=== PATIENT | female | born 1990 | race Caucasian/White ===

== ENCOUNTER 2016-09-29 12:42 | Emergency (ER) | payer OTHER ==
--- NOTE | 2016-09-29 13:10 | ER Document Report ---
ED GI/ - General Chief Complaint: Abdominal Pain Stated Complaint: ABDOMINAL PAIN, BACK PAIN Time Seen by Provider: 09/29/16 13:05 Notes: The patient is a 26-year-old female, no past medical history, presents with bilateral upper abdominal pain when she takes deep breaths. She took Naprosyn and Flexeril earlier today with mild relief of her symptoms. She denies nausea , vomiting, diarrhea, constipation, OCPs, chest pain, hemoptysis, leg swelling or recent surgery. TRAVEL OUTSIDE OF THE [place] IN LAST 30 DAYS: No - Related Data Allergies/Adverse Reactions: No Known Allergies Allergy (Verified 09/29/16 13:04) Home Medications: Current Home Medications No Home Medications 09/29/16 [History] Past Medical History - General Information source: Patient - Social History Smoking Status: Current Every Day Smoker Frequency of alcohol use: None Drug Abuse: None Family History: Reviewed & Not Pertinent Renal/ Medical History: Denies: Hx Peritoneal Dialysis Surgical Hx: Negative Review of Systems - Review of Systems Notes: REVIEW OF SYSTEMS: CONSTITUTIONAL: -fevers, -chills EENT: -eye pain, -difficulty swallowing, -nasal congestion CARDIOVASCULAR:-chest pain, -syncope. RESPIRATORY: -cough, -SOB GASTROINTESTINAL: +B/L upper abdominal pain, -nausea, -vomiting, -diarrhea GENITOURINARY: -dysuria, -hematuria MUSCULOSKELETAL: -back pain, -neck pain SKIN: -rash or skin lesions. HEMATOLOGIC: -easy bruising or bleeding. LYMPHATIC: -swollen, enlarged glands. NEUROLOGICAL: -altered mental status or loss of consciousness, -headache, - neurologic symptoms PSYCHIATRIC: -anxiety, -depression. ALL OTHER SYSTEMS REVIEWED AND NEGATIVE. Physical Exam - Vital signs Vitals: Temp Pulse Resp BP Pulse Ox 98.6 F 98 16 115/61 97 09/29/16 12:52 09/29/16 12:52 09/29/16 12:52 09/29/16 12:52 09/29/16 12:52 - Notes Notes: PHYSICAL EXAMINATION: GENERAL: Well-appearing, well-nourished and in no acute distress. HEAD: Atraumatic, normocephalic. EYES: Pupils equal round and reactive to light, extraocular movements intact, sclera anicteric, conjunctiva are normal. ENT: nares patent, oropharynx clear without exudates. Moist mucous membranes. NECK: Normal range of motion, supple without lymphadenopathy LUNGS: Breath sounds clear to auscultation bilaterally and equal. No wheezes rales or rhonchi. HEART: Regular rate and rhythm without murmurs ABDOMEN: Soft, B/L upper abdominal tenderness, normoactive bowel sounds. No guarding, no rebound. No masses appreciated. EXTREMITIES: Normal range of motion, no pitting or edema. No cyanosis. NEUROLOGICAL: Cranial nerves grossly intact. Normal speech, normal gait. Normal sensory and motor exams. PSYCH: Normal mood, normal affect. SKIN: Warm, Dry, normal turgor, no rashes or lesions noted. Course - Re-evaluation Re-evalutation: Patient appears well. Her labs chest x-ray are unremarkable. Suspect a component of pleurisy leading to her symptoms. She is PERC negative. Will discharge patient home with follow-up at her primary care physician and strict return precautions. - Vital Signs Vital signs: Temp Pulse Resp BP Pulse Ox 98.6 F 98 18 115/61 97 09/29/16 12:52 09/29/16 12:52 09/29/16 13:00 09/29/16 12:52 09/29/16 12:52 - Laboratory Result Diagrams: 09/29/16 13:15 09/29/16 13:15 Laboratory results interpreted by me: 09/29/16 09/29/16 13:15 13:15 RDW 14.1 H Seg Neutrophils % 88.2 H Lymphocytes % 7.3 L Urine Protein 30 H - Diagnostic Test Radiology reviewed: Image reviewed, Reports reviewed Radiology results interpreted by me: CXR: NAD Discharge - Discharge Clinical Impression: Upper abdominal pain Condition: Stable Disposition: HOME, SELF-CARE Additional Instructions: ABDOMINAL PAIN: There are many causes of abdominal pain. Pain can mean a serious problem requiring surgery (such as appendicitis). It can also be an innocent problem that goes away on its own (such as a viral infection). Often, time must pass to determine the cause of pain. The physician does not feel that hospitalization is necessary, at present. Things may change within the next 24 hours. Call the doctor or come back for re- examination if any problems occur, such as: (1) Pain that becomes more severe, steady, or becomes concentrated in one specific area. Also, pain that is more severe with movement or coughing. (2) Vomiting that persists or becomes more frequent. (3) Blood in the vomitus, urine, or bowel movements. Blood in the stool may have a tarry or black appearance. (4) Shaking chills or fever greater than 100 degrees F. (5) The abdomen becomes more distended or swollen. (6) Bowel movements cease. (7) Failure to improve as expected. NORMAL EXAM AND WORKUP: At this time, your examination and workup show no significant abnormality. No significant abnormal physical findings are noted. All laboratory, EKG, and imaging (x-ray, CT scans, ultrasound) studies that were ordered show no significant abnormality. Although your examination and all studies that were ordered showed no significant abnormal finding, there are no examinations and no studies that are 100% accurate. There is always the possibility that some abnormality could exist and not be detected with physical examination or within the limits and capabilities of laboratory and other studies. You should return or follow up as you were instructed on your visit today for further evaluation if your symptoms do not resolve. FOLLOW-UP CARE: If you have been referred to a physician for follow-up care, call the physician s office for an appointment as you were instructed or within the next two days. If you experience worsening or a significant change in your symptoms, notify the physician immediately or return to the Emergency Department at any time for re-evaluation. Pleurisy Your chest pain has been diagnosed as pleuritis (pleurisy). This is an inflammation of the surface of the lung tissue. It can be caused by a virus or , occasionally, old scar tissue. It is painful but, for the most part, not a serious problem. This pain is usually made worse by deep breathing, coughing, or sudden movements of the upper body or arms. The treatment is relief of symptoms. It includes rest, antiinflammatory medication, and pain medicine. Resolution of the pain is usually rapid once antiinflammatory medication is started. Warning signs of a more serious problem include: a fever, shortness of breath, pain that radiates to your jaw, shoulders or arms, or coughing up bloody sputum. If any of these symptoms occur, call the physician at once.
[2016-09-29 13:42] LABS: ABSOLUTE LYMPHOCYTES (AUTO) 0.6 10^3/uL (0.5-4.7); ABSOLUTE MONOCYTES (AUTO) 0.3 10^3/uL (0.1-1.4); ABSOLUTE NEUT (AUTO) 6.9 10^3/uL (1.7-8.2); BASOPHILS % (AUTO) 0.5 % (0-2); EOSINOPHILS % (AUTO) 0.2 % (0-6); HEMATOCRIT 42.2 % (36.0-47.0); HEMOGLOBIN 14.3 g/dL (12.0-15.5); HGB HCT DIFFERENCE 0.7; LYMPHOCYTES % (AUTO) 7.3 % (13-45); MEAN CORPUSCULAR HEMOGLOBIN 28.7 pg (27.0-33.4); MEAN CORPUSCULAR HGB CONC 33.9 g/dL (32.0-36.0); MEAN CORPUSCULAR VOLUME 85 fl (80-97); MONOCYTES % (AUTO) 3.8 % (3-13); RED BLOOD COUNT 4.99 10^6/uL (3.72-5.28); RED CELL DISTRIBUTION WIDTH 14.1 % (11.5-14.0); SEGMENTED NEUTROPHILS % (AUTO) 88.2 % (42-78); WHITE BLOOD COUNT 7.9 10^3/uL (4.0-10.5)
--- NOTE | 2016-09-29 13:43 | RADIOLOGY REPORT (SQ) ---
EXAM DESCRIPTION: CHEST PA/LAT COMPLETED DATE/TIME: 09/29/2016 1:34 pm REASON FOR STUDY: SOB COMPARISON: None. EXAM PARAMETERS: NUMBER OF VIEWS: two views TECHNIQUE: Digital Frontal and Lateral radiographic views of the chest acquired. RADIATION DOSE: NA LIMITATIONS: none FINDINGS: LUNGS AND PLEURA: No opacities, masses or pneumothorax. No pleural effusion. MEDIASTINUM AND HILAR STRUCTURES: No masses or contour abnormalities. HEART AND VASCULAR STRUCTURES: Heart normal size. No evidence for failure. BONES: No acute findings. HARDWARE: None in the chest. OTHER: No other significant finding. IMPRESSION: NO SIGNIFICANT RADIOGRAPHIC FINDING IN THE CHEST. TECHNICAL DOCUMENTATION: JOB ID: [id number] [employer]- All Rights Reserved
[2016-09-29 13:50] LABS: APPEARANCE,URINE SLIGHTLY-CLOUDY; BILIRUBIN,URINE NEGATIVE (NEGATIVE); GLUCOSE, URINE NEGATIVE (NEGATIVE); KETONES,URINE NEGATIVE (NEGATIVE); LEUKOCYTE ESTERASE,URINE NEGATIVE (NEGATIVE); NITRITE,URINE NEGATIVE (NEGATIVE); PROTEIN,URINE 30 mg/dL (NEGATIVE); URINE SPECIFIC GRAVITY 1.032; UROBILINOGEN,URINE NEGATIVE mg/dL (<2.0)
[2016-09-29 14:15] LABS: ALANINE AMINOTRANSFERASE 23 U/L (9-52); ALBUMIN 4.2 g/dL (3.5-5.0); ALKALINE PHOSPHATASE 90 U/L (38-126); ANION GAP 11 (5-19); ASPARTATE AMINO TRANSFERASE 18 U/L (14-36); BILIRUBIN,DIRECT 0.3 mg/dL (0.0-0.4); BILIRUBIN,TOTAL 0.9 mg/dL (0.2-1.3); BLOOD UREA NITROGEN 10 mg/dL (7-20); CALCIUM 9.8 mg/dL (8.4-10.2); CARBON DIOXIDE 25 mmol/L (22-30); CHLORIDE 105 mmol/L (98-107); CREATININE RESULT 0.71 mg/dL (0.52-1.25); GLUCOSE 129 mg/dL (75-110); SODIUM 141.3 mmol/L (137-145); TOTAL PROTEIN 7.4 g/dL (6.3-8.2)
[2016-09-29 14:36] VITALS: BP 115/53
== END 2016-09-29 14:47 | disposition home or self-care (01) ==
LOC: ER 12:42
DX: R10.10 Upper abdominal pain, unspecified (principal); M54.9 Dorsalgia, unspecified; F17.200 Nicotine dependence, unspecified, uncomplicated
CPT/HCPCS: 36415; 71020; 80053; 81001; 81025; 85025; 99284

== ENCOUNTER 2016-10-30 21:02 | Emergency (ER) | payer OTHER ==
[2016-10-30 22:16] LABS: APPEARANCE,URINE SLIGHTLY-CLOUDY; BILIRUBIN,URINE NEGATIVE (NEGATIVE); GLUCOSE, URINE NEGATIVE (NEGATIVE); KETONES,URINE NEGATIVE (NEGATIVE); LEUKOCYTE ESTERASE,URINE TRACE (NEGATIVE); NITRITE,URINE NEGATIVE (NEGATIVE); PROTEIN,URINE NEGATIVE (NEGATIVE); URINE SPECIFIC GRAVITY 1.024; UROBILINOGEN,URINE NEGATIVE mg/dL (<2.0)
--- NOTE | 2016-10-30 22:39 | ER Document Report ---
ED General - General Chief Complaint: OB Problem (<20wks) Stated Complaint: VAGINAL BLEEDING AND CRAMPING Time Seen by Provider: 10/30/16 22:18 Notes: Patient is a 26-year-old female presents with complaint of some vaginal spotting for the last 2 weeks. She says it has increased in the last day. She does have some mild pelvic cramping. She is approximately 6 weeks . This is her second . She says her first was uneventful. She is on vitamins. She has not yet had an ultrasound this . She has no other complaints at this time. TRAVEL OUTSIDE OF THE [place] IN LAST 30 DAYS: No - Related Data Allergies/Adverse Reactions: No Known Allergies Allergy (Verified 10/30/16 21:11) Past Medical History - Social History Smoking Status: Never Smoker Frequency of alcohol use: None Drug Abuse: None Family History: Reviewed & Not Pertinent Patient has suicidal ideation: No Patient has homicidal ideation: No Renal/ Medical History: Denies: Hx Peritoneal Dialysis Review of Systems - Review of Systems Notes: My Normal Review Basic REVIEW OF SYSTEMS: CONSTITUTIONAL : Denies fever, chills, or sweats. Denies recent illness. EENT: Denies eye, ear, throat, or mouth pain or symptoms. Denies nasal or sinus congestion. GASTROINTESTINAL: Denies abdominal pain. Denies nausea, vomiting, or diarrhea. GENITOURINARY: Denies difficulty urinating, painful urination, burning, frequency, or blood in urine. FEMALE GENITOURINARY: Vaginal spotting. Currently . Some pelvic cramping. MUSCULOSKELETAL: Denies neck or back pain or joint pain or swelling. SKIN: Denies rash or skin lesions. NEUROLOGICAL: Denies altered mental status or loss of consciousness. Denies headache. Denies weakness or paralysis or loss of use of either side. Denies problems with gait or speech. Denies sensory or motor loss. ALL OTHER SYSTEMS REVIEWED AND NEGATIVE. Physical Exam - Vital signs Vitals: Temp Pulse Resp BP Pulse Ox 98.6 F 83 18 131/73 H 98 10/30/16 21:12 10/30/16 21:12 10/30/16 21:12 10/30/16 21:12 10/30/16 21:12 - Notes Notes: General Appearance: Well nourished, alert, cooperative, no acute distress, no obvious discomfort. Vitals: reviewed, See vital signs table. Head: no swelling or tenderness to the head Eyes: PERRL, EOMI, Conjuctiva clear Mouth: No decreasd moisture Lungs: No wheezing, No rales, No rhonci, No accessory muscle use, good air exchange bilaterally. Heart: Normal rate, Regular rythm, No murmur, no rub Abdomen: Normal BS, soft, No rigidity, mild to moderate left lower quadrant abdominal tenderness to palpation, No guarding, no rebound, Extremities: strength 5/5 in all extremities, good pulses in all extremities, no swelling or tenderness in the extremities, no edema. Skin: warm, dry, appropriate color, no rash Neuro: speech clear, oriented x 3, normal affect, responds appropriately to questions. Course - Re-evaluation Re-evalutation: 10/31/16 00:28 Patient is a seizure level is only 87. We cannot see an IUP on ultrasound. She says she 6 weeks and therefore her hCG level should be higher than this. I informed her that I think most likely she is having a miscarriage however we cannot completely rule out ectopic based on the fact that we do not have any trending hCG levels and not had an IUP P on ultrasound yet. On exam she has just minimal pain. Her vital signs are normal. She looks very well. I feel that she is safe to be discharged home for return in 2 days for reevaluation and repeat hCG level. I did inform her that if she has worsening pain, heavy bleeding, or if she feels unwell that she must return to the ER immediately. Patient agrees with plan will be discharged home. Dictation of this chart was performed using voice recognition software; therefore, there may be some unintended grammatical errors. - Vital Signs Vital signs: Temp Pulse Resp BP Pulse Ox 98.6 F 83 18 131/73 H 98 10/30/16 21:12 10/30/16 21:12 10/30/16 21:12 10/30/16 21:12 10/30/16 21:12 - Laboratory Laboratory results interpreted by me: 10/30/16 10/30/16 21:43 23:10 Beta HCG, Quant 82.08 H Urine Blood LARGE H Ur Leukocyte Esterase TRACE H Urine Ascorbic Acid 40 H Discharge - Discharge Clinical Impression: Vaginal bleeding in Condition: Stable Disposition: HOME, SELF-CARE Additional Instructions: Please return to the ER immediately if you develop worsening pain, heavy bleeding, fevers, or feel unwell. Please return to the ER in 2 days so that we can recheck your hormone level. This is extremely important as this will help us determine whether or not you are having a miscarriage, if you have a potential ectopic , or if he does have a very early that we cannot yet see an ultrasound. This follow-up with us is extremely important. Forms: Return to Work
--- NOTE | 2016-10-31 00:01 | RADIOLOGY REPORT (SQ) ---
EXAM DESCRIPTION: U/S OB TRANSVAG W/DOPPLER COMPLETED DATE/TIME: 10/30/2016 11:42 pm REASON FOR STUDY: bleeding and pain in COMPARISON: None. TECHNIQUE: Dynamic and static grayscale images acquired of the pelvis via transvaginal approach and recorded on PACS. Additional selected color Doppler and spectral images recorded. LIMITATIONS: None. FINDINGS: UTERUS: Contour normal. No mass. ENDOMETRIAL STRIPE: No focal or generalized thickening. No masses. CERVIX: No nabothian cysts. RIGHT OVARY: No abnormal masses. RIGHT OVARY DOPPLER: Normal arterial vascular flow without evidence for torsion. LEFT OVARY: No abnormal masses. LEFT OVARY DOPPLER: Normal arterial vascular flow without evidence for torsion. FREE FLUID: None noted. OTHER: No other significant finding. MEASUREMENTS: UTERUS: 7.6 x 5.3 x 3.9 cm ENDOMETRIAL STRIPE: 7 mm RIGHT OVARY: 2.9 x 2.5 x 2.1 cm LEFT OVARY: 2.6 x 1.6 x 1.9 cm IMPRESSION: No IUP identified. TECHNICAL DOCUMENTATION: JOB ID: [id number]- All Rights Reserved
[2016-10-31 00:45] VITALS: BP 118/65
== END 2016-10-31 00:45 | disposition home or self-care (01) ==
LOC: ER 21:02
DX: O26.859 Spotting complicating pregnancy, unspecified trimester (principal); O26.899 Other specified pregnancy related conditions, unspecified trimester; R10.2 Pelvic and perineal pain; Z3A.00 Weeks of gestation of pregnancy not specified
CPT/HCPCS: 36415; 76817; 81001; 84702; 86900; 86901; 93976; 99284

== ENCOUNTER 2016-11-01 06:42 | Emergency (ER) | payer OTHER ==
--- NOTE | 2016-11-01 07:41 | ER Document Report ---
ED General - General Chief Complaint: Vag Bleeding, +preg <12wks Stated Complaint: FOLLOW UP Time Seen by Provider: 11/01/16 07:03 TRAVEL OUTSIDE OF THE [place] IN LAST 30 DAYS: No - HPI Patient complains to provider of: Vaginal bleeding Notes: Patient coming in for evaluation of vaginal bleeding. Patient was seen approximately 48 hours ago with ultrasound and laboratory studies showing positive test however low beta hCG was recommended to follow-up for repeat values today. Patient otherwise states intermittent bleeding continues no abdominal pain no fevers chills nausea vomiting patient is an - Related Data Allergies/Adverse Reactions: No Known Allergies Allergy (Verified 10/30/16 21:11) Past Medical History - Social History Smoking Status: Unknown if Ever Smoked Family History: Reviewed & Not Pertinent Renal/ Medical History: Denies: Hx Peritoneal Dialysis Review of Systems - Review of Systems Constitutional: Other EENT: No symptoms reported Cardiovascular: No symptoms reported Respiratory: No symptoms reported Gastrointestinal: No symptoms reported Genitourinary: No symptoms reported Female Genitourinary: No symptoms reported Musculoskeletal: No symptoms reported Skin: No symptoms reported Hematologic/Lymphatic: No symptoms reported Neurological/Psychological: No symptoms reported Physical Exam - Vital signs Vitals: Resp 16 11/01/16 07:07 Interpretation: Normal - General General appearance: Appears well, Alert - HEENT Head: Normocephalic, Atraumatic Eyes: Normal Pupils: PERRL - Respiratory Respiratory status: No respiratory distress Chest status: Nontender Breath sounds: Normal Chest palpation: Normal - Cardiovascular Rhythm: Regular Heart sounds: Normal auscultation Murmur: No - Abdominal Inspection: Normal Distension: No distension Bowel sounds: Normal Tenderness: Nontender Organomegaly: No organomegaly - Back Back: Normal, Nontender - Extremities General upper extremity: Normal inspection, Nontender, Normal color, Normal ROM , Normal temperature General lower extremity: Normal inspection, Nontender, Normal color, Normal ROM , Normal temperature, Normal weight bearing. No: Ml's sign - Neurological Neuro grossly intact: Yes Cognition: Normal Orientation: AAOx4 Cheryle Coma Scale Eye Opening: Spontaneous [place] Coma Scale Verbal: Oriented [place] Coma Scale Motor: Obeys Commands Cheryle Coma Scale Total: 15 Speech: Normal Motor strength normal: LUE, RUE, LLE, RLE Sensory: Normal - Psychological Associated symptoms: Normal affect, Normal mood - Skin Skin Temperature: Warm Skin Moisture: Dry Skin Color: Normal Course - Re-evaluation Re-evalutation: 11/01/16 14:00 DiscussedCase with [employer] [employer] on-call recommend follow-up on Thursday in their office. Patient will be discharged home - Vital Signs Vital signs: Temp Pulse Resp BP Pulse Ox 98.5 F 60 18 111/60 98 11/01/16 09:11 11/01/16 09:11 11/01/16 09:11 11/01/16 09:11 11/01/16 09:11 - Laboratory Laboratory results interpreted by me: 11/01/16 07:43 Beta HCG, Quant 106.41 H Discharge - Discharge Clinical Impression: Vaginal bleeding in Condition: Good Disposition: HOME, SELF-CARE Instructions: Bleeding During Early ([facility]), Ectopic Precaution ([facility]) Additional Instructions: Your laboratory studies still show that you are the beta-hCG did not increase as much as be expected however it did increase. I did discuss the results with the [employer] OFFICER on-call Dr. Murillo at this time continue to treat herself as no smoking or drinking alcohol observe pelvic rest and no intercourse no tampons no toys inside the vagina.He may take Tylenol for pain control please make sure you are drinking plenty of water please continue your vitamins. Return to the ER for any worsening of her symptoms. Please follow-up on Thursday for outpatient laboratory testing and then follow-up with the [facility] care clinic for further evaluation. Forms: Follow-Up Laboratory Testing, Special Work Note Referrals: VANI TENA MD [ACTIVE STAFF] - Follow up as needed (Please call Thursday morning to schedule an afternoon appointment please have your labs drawn before you go to the [facility] [employer] I would suggest having her labs performed at around 9 [address] let the staff know you were seen in the ER and Dr. Murillo requested an appointment in the afternoon with 1 of the [employer] OFFICER's)
--- NOTE | 2016-11-01 08:55 | ER Document Report ---
ED General - General Chief Complaint: Vag Bleeding, +preg <12wks Stated Complaint: FOLLOW UP Time Seen by Provider: 11/01/16 07:03 TRAVEL OUTSIDE OF THE [place] IN LAST 30 DAYS: No - Related Data Allergies/Adverse Reactions: No Known Allergies Allergy (Verified 10/30/16 21:11) Past Medical History - Social History Smoking Status: Unknown if Ever Smoked Family History: Reviewed & Not Pertinent Renal/ Medical History: Denies: Hx Peritoneal Dialysis Physical Exam - Vital signs Vitals: Resp 16 11/01/16 07:07 Course - Vital Signs Vital signs: Temp Pulse Resp BP Pulse Ox 16 11/01/16 07:07 - Laboratory Laboratory results interpreted by me: 11/01/16 07:43 Beta HCG, Quant 106.41 H Discharge - Discharge Clinical Impression: Vaginal bleeding in Condition: Good Disposition: HOME, SELF-CARE Instructions: Bleeding During Early ([facility]), Ectopic Precaution ([facility]) Additional Instructions: Your laboratory studies still show that you are the beta-hCG did not increase as much as be expected however it did increase. I did discuss the results with the [employer] on-call Dr. Murillo at this time continue to treat herself as no smoking or drinking alcohol observe pelvic rest and no intercourse no tampons no toys inside the vagina.He may take Tylenol for pain control please make sure you are drinking plenty of water please continue your vitamins. Return to the ER for any worsening of her symptoms. Please follow-up on Thursday for outpatient laboratory testing and then follow-up with the women's health care clinic for further evaluation. Forms: Follow-Up Laboratory Testing, Special Work Note Referrals: VANI TENA MD [ACTIVE STAFF] - Follow up as needed (Please call Thursday morning to schedule an afternoon appointment please have your labs drawn before you go to the [employer] [employer] [facility] I would suggest having her labs performed at around [address] let the staff know you were seen in the ER and Dr. Murillo requested an appointment in the afternoon with 1 of the [employer]'s)
[2016-11-01 09:12] VITALS: BP 111/60
== END 2016-11-01 09:12 | disposition home or self-care (01) ==
LOC: ER 06:42
DX: O46.91 Antepartum hemorrhage, unspecified, first trimester (principal); Z3A.01 Less than 8 weeks gestation of pregnancy
CPT/HCPCS: 36415; 84702; 99284

== ENCOUNTER → 2016-11-03 | Outpatient (CLI) | payer OTHER ==
[2016-11-03 11:05] LABS: HEMATOCRIT 38.9 % (36.0-47.0); HEMOGLOBIN 13.3 g/dL (12.0-15.5); MEAN CORPUSCULAR HEMOGLOBIN 28.6 pg (27.0-33.4); MEAN CORPUSCULAR HGB CONC 34.3 g/dL (32.0-36.0); MEAN CORPUSCULAR VOLUME 83 fl (80-97); RED BLOOD COUNT 4.66 10^6/uL (3.72-5.28); WHITE BLOOD COUNT 9.6 10^3/uL (4.0-10.5)
[2016-11-03 11:41] LABS: ALANINE AMINOTRANSFERASE 24 U/L (9-52); ALBUMIN 4.1 g/dL (3.5-5.0); ALKALINE PHOSPHATASE 79 U/L (38-126); ANION GAP 10 (5-19); ASPARTATE AMINO TRANSFERASE 17 U/L (14-36); BILIRUBIN,DIRECT 0.3 mg/dL (0.0-0.4); BLOOD UREA NITROGEN 9 mg/dL (7-20); CALCIUM 9.4 mg/dL (8.4-10.2); CARBON DIOXIDE 22 mmol/L (22-30); CHLORIDE 107 mmol/L (98-107); CREATININE RESULT 0.65 mg/dL (0.52-1.25); GLUCOSE 90 mg/dL (75-110); POTASSIUM 4.2 mmol/L (3.6-5.0); TOTAL PROTEIN 7.1 g/dL (6.3-8.2)
== END ==
LOC: LAB 09:57
PROVIDERS: ATTEND Emergency Medicine
DX: O46.90 Antepartum hemorrhage, unspecified, unspecified trimester (principal)
CPT/HCPCS: 36415; 80053; 84144; 84702; 85027; 86850; 86900; 86901

== ENCOUNTER 2017-06-21 21:21 | Emergency (ER) | payer OTHER ==
[2017-06-21] MEDS ORDERED: AMOXICILLIN TRIHYDRATE 500 MG CAPSULE PO ONE (23:10)
[2017-06-21] MEDS ORDERED: KETOROLAC TROMETHAMINE 60 MG/2 ML SDV IM ONE (23:10)
[2017-06-21] MEDS ORDERED: LIDOCAINE 2% JELLY 5 ML TUBE TOP ONE (23:10)
[2017-06-21] MEDS ORDERED: ACETAMINOPHEN 325 MG TABLET PO ONE (23:11)
--- NOTE | 2017-06-21 23:13 | ER Document Report ---
ED General - General Chief Complaint: Facial pain, ear, jaw, sabianist L side Stated Complaint: FACIAL PAIN Time Seen by Provider: 06/21/17 22:29 Notes: Patient is a 26-year-old female without chronic medical problems who presents with 12 hours of left-sided ear pain as well as left facial pain. She describes as a throbbing, aching pain. Touching the area worsens the pain. She took naproxen with some improvement of the pain. She states that she has had similar pain in the past with dental infections but does not believe that she currently has a dental infection. No associated fever or constitutional symptoms. No difficulty breathing or swallowing. She has not seen her primary doctor regarding today's concerns. TRAVEL OUTSIDE OF THE [place] IN LAST 30 DAYS: No - Related Data Allergies/Adverse Reactions: No Known Allergies Allergy (Verified 06/21/17 22:41) Past Medical History - General Information source: Patient - Social History Smoking Status: Current Every Day Smoker Frequency of alcohol use: None Drug Abuse: None Lives with: Spouse/Significant other Family History: Reviewed & Not Pertinent Patient has suicidal ideation: No Patient has homicidal ideation: No Renal/ Medical History: Denies: Hx Peritoneal Dialysis Review of Systems - Review of Systems Notes: Constitutional: Negative for fever. HENT: Positive for left ear pain and left facial pain Eyes: Negative for visual changes. Cardiovascular: Negative for chest pain. Respiratory: Negative for shortness of breath. Gastrointestinal: Negative for abdominal pain, vomiting or diarrhea. Genitourinary: Negative for dysuria. Musculoskeletal: Negative for back pain. Skin: Negative for rash. Neurological: Negative for headaches, weakness or numbness. 10 point ROS negative except as marked above and in HPI. Physical Exam - Vital signs Vitals: Temp Pulse Resp BP Pulse Ox 98.7 F 78 20 132/79 H 99 06/21/17 21:57 06/21/17 21:57 06/21/17 21:57 06/21/17 21:57 06/21/17 21:57 Interpretation: Normal Notes: PHYSICAL EXAMINATION: GENERAL: Well-appearing, well-nourished and in no acute distress. HEAD: Atraumatic, normocephalic. EYES: Pupils equal round and reactive to light, extraocular movements intact, sclera anicteric, conjunctiva are normal. ENT: nares patent, oropharynx clear without exudates. No obvious dental caries or dental infections. Right TM clear. Left otitis media is present with a bulging tympanic membrane and purulent effusion. No pain over the mastoid bilaterally. NECK: Normal range of motion, supple without lymphadenopathy LUNGS: Breath sounds clear to auscultation bilaterally and equal. No wheezes rales or rhonchi. HEART: Regular rate and rhythm without murmurs ABDOMEN: Soft, nontender, normoactive bowel sounds. No guarding, no rebound. No masses appreciated. EXTREMITIES: Normal range of motion, no pitting or edema. No cyanosis. NEUROLOGICAL: No focal neurological deficits. Moves all extremities spontaneously and on command. PSYCH: Normal mood, normal affect. SKIN: Warm, Dry, normal turgor, no rashes or lesions noted. Course - Re-evaluation Re-evalutation: 06/21/17 23:11 Patient presents with left ear and jaw pain as well as left facial pain. Examination overall unremarkable with exception of an obvious left otitis media. No trismus, no evidence of a dental abscess or facial abscess. No facial cellulitis or periorbital cellulitis. No pain over the tragus or over the mastoid to suggest acute mastoiditis or otitis externa. Patient will be treated with Tylenol, NSAIDs, amoxicillin. Patient is otherwise nontoxic in appearance and I do not suspect any alternative acute life-threatening illness at this time. At this time will discharge with return precautions and follow- up recommendations. Verbal discharge instructions given a the bedside and opportunity for questions given. Medication warnings reviewed. Patient is in agreement with this plan and has verbalized understanding of return precautions and the need for primary care follow-up in the next 24-72 hours. - Vital Signs Vital signs: Temp Pulse Resp BP Pulse Ox 98.6 F 59 L 16 131/82 H 98 06/21/17 23:38 06/21/17 23:38 06/21/17 23:38 06/21/17 23:38 06/21/17 23:38 Discharge - Discharge Clinical Impression: Left facial pain Left otitis media Qualifiers: Otitis media type: suppurative Chronicity: acute Recurrence: not specified as recurrent Spontaneous tympanic membrane rupture: without spontaneous rupture Qualified Code(s): H66.002 - Acute suppurative otitis media without spontaneous rupture of ear drum, left ear Condition: Good Disposition: HOME, SELF-CARE Additional Instructions: You were seen today for ear pain and have an acute ear infection. Please take the antibiotic that has been prescribed until it is completed even if you are feeling better before you have finished all the antibiotics. For your pain: Take ibuprofen 600 mg and acetaminophen 1000 mg every 6 hours together as needed for pain. Return if you have worsening of your pain, loss of hearing in the affected ear, worsening facial pain, headaches, pass out, or any other symptoms that are worrisome to you. Prescriptions: Amoxicillin 1 tab PO TID #30 tab Forms: Return to Work
[2017-06-21 23:39] VITALS: BP 131/82
== END 2017-06-21 23:59 | disposition home or self-care (01) ==
LOC: ER 21:21
DX: H66.002 Acute suppurative otitis media without spontaneous rupture of ear drum, left ear (principal); R51 Headache; F17.200 Nicotine dependence, unspecified, uncomplicated
CPT/HCPCS: 99283; 96372; J1885

== ENCOUNTER 2017-07-06 11:33 | Emergency (ER) | payer OTHER ==
--- NOTE | 2017-07-06 11:50 | ER Document Report ---
HPI - HPI Patient complains to provider of: Headache and face pain for 6 months Onset: Other - 6 months Onset/Duration: Intermittent - Can be on the right or left side Quality of pain: Throbbing Pain Level: 3 Context: 27-year-old female that started a new job 6 months ago started having intermittent episodes of right or left jaw pain and then it progresses to the left maxillary malar bone area and the left or right tenriism into the posterior occipital left or right neck. It usually last 1-3 days. She is sound sensitive when she has it. No tinnitus or dizziness. She has been treated and diagnosed with either a sinus infection or dental infection and given a antibiotics which did not stop it or prevent it from occurring again. No fever or chills. No IV drug use. Associated Symptoms: Other - See above Exacerbated by: Other - Sound, stress at her new job, teeth grinding at night Relieved by: Antacids - ROS ROS below otherwise negative: Yes Systems Reviewed and Negative: Yes All other systems reviewed and negative - REPRODUCTIVE LMP: unknown Past Medical History - General Information source: Patient - Social History Smoking Status: Current Every Day Smoker Frequency of alcohol use: None Drug Abuse: None Lives with: Spouse/Significant other Family History: Reviewed & Not Pertinent - Medical History Medical History: Negative Renal/ Medical History: Denies: Hx Peritoneal Dialysis Surgical Hx: Negative Vertical Provider Document - CONSTITUTIONAL Agree With Documented VS: Yes Exam Limitations: No Limitations General Appearance: No Apparent Distress - INFECTION CONTROL TRAVEL OUTSIDE OF THE [place] IN LAST 30 DAYS: No - HEENT HEENT: PERRLA - eom's intact. negative: Conjuctival Injection, Pharyngeal Erythema Notes: Some decay and bilateral lower third molars without abscess or gingivitis. tender at right TMJ, right mandible, right posterior occipital muscle insertion at base of skull. - NECK Neck: Supple. negative: Lymphadenopathy-Left, Lymphadenopathy-Right - RESPIRATORY Respiratory: Breath Sounds Normal, No Respiratory Distress - CARDIOVASCULAR Cardiovascular: Regular Rate, Regular Rhythm - MUSCULOSKELETAL/EXTREMETIES Musculoskeletal/Extremeties: MAEW - NEURO Level of Consciousness: Awake, Alert, Appropriate Motor/Sensory: No Motor Deficit, No Sensory Deficit - DERM Integumentary: No Rash Notes: Gait stable Course - Re-evaluation Re-evalutation: 07/06/17 12:59 Headache is level 0 07/06/17 13:44 CT of the head is negative will refer patient to neurologist and oral surgeon - Vital Signs Vital signs: Temp Pulse Resp BP Pulse Ox 98.5 F 82 18 136/81 H 100 07/06/17 11:46 07/06/17 11:46 07/06/17 11:46 07/06/17 11:46 07/06/17 11:46 Discharge - Discharge Clinical Impression: Headache, Facial pain, TMJ Condition: Good Disposition: HOME, SELF-CARE Instructions: Intravenous Compazine for Headaches ([facility]), Use of Diphenhydramine , Headache ([facility]), Muscle Relaxers ([facility]), Temporomandibular Joint Syndrome ([facility]) , Toradol Injection ([facility]) Additional Instructions: See the oral surgeon for possible TMJ bite block See the neurologist for migraine headaches Return to the emergency room if symptoms worsen Prescriptions: Ibuprofen [Motrin 800 mg Tablet] 800 mg PO Q8HP PRN #30 tablet PRN Reason: Cyclobenzaprine HCl [Flexeril 10 Mg Tablet] 10 mg PO TIDP PRN #20 tablet PRN Reason: Referrals: GERRY GARCIA DDS [ACTIVE STAFF] - Follow up as needed REGINE VARNER MD [NO LOCAL MD] - Follow up as needed
[2017-07-06] MEDS ORDERED: KETOROLAC TROMETHAMINE INJ/PF 30 MG/1 ML SDV IV ONE (12:12)
[2017-07-06] MEDS ORDERED: NORMAL SALINE 1000 ML 1,000 ML IV ONE (12:12)
[2017-07-06] MEDS ORDERED: DIPHENHYDRAMINE HCL 50 MG/ML VIAL IV ONE (12:12)
[2017-07-06] MEDS ORDERED: PROCHLORPERAZINE EDISYLATE INJ 10 MG/2 ML VIAL IV ONE (12:12)
--- NOTE | 2017-07-06 13:16 | RADIOLOGY REPORT (SQ) ---
EXAM DESCRIPTION: CT HEAD WITHOUT COMPLETED DATE/TIME: 07/06/2017 12:59 pm REASON FOR STUDY: 6 mo george COMPARISON: None. TECHNIQUE: Axial images acquired through the brain without intravenous contrast. Images reviewed wi th bone, brain and subdural windows. Additional sagittal and coronal reconstructions were generated. Images stored on PACS. All CT scanners at this facility use dose modulation, iterative reconstruction, and/or weight based d osing when appropriate to reduce radiation dose to as low as reasonably achievable (ALARA). [facility]: Dose Right [facility]: CareDose [facility]: Dose Right [facility]: Teradose 4D [facility]: Smart Nacuii RADIATION DOSE: CT Rad equipment meets quality standard of care and radiation dose reduction techniq ues were employed. CTDIvol: 53.2 mGy. DLP: 1044 mGy-cm. mGy. LIMITATIONS: None. FINDINGS: VENTRICLES: Normal size and contour. CEREBRUM: No masses. No hemorrhage. No midline shift. No evidence for acute infarction. Normal gra y/white matter differentiation. No areas of low density in the white matter. CEREBELLUM: No masses. No hemorrhage. No alteration of density. No evidence for acute infarction. EXTRAAXIAL SPACES: No fluid collections. No masses. ORBITS AND GLOBE: No intra- or extraconal masses. Normal contour of globe without masses. CALVARIUM: No fracture. PARANASAL SINUSES: No fluid or mucosal thickening. SOFT TISSUES: No mass or hematoma. OTHER: No other significant finding. IMPRESSION: NORMAL BRAIN CT WITHOUT CONTRAST. EVIDENCE OF ACUTE STROKE: NO. COMMENT: Quality ID # [id number]: Final reports with documentation of one or more dose reduction techniques (e.g., Automated exposure control, adjustment of the mA and/or kV according to patient size, use of iterative reconstruction technique) TECHNICAL DOCUMENTATION: JOB ID: [id number] [employer]- All Rights Reserved Reading location - IP/workstation name: [email or web address]
[2017-07-06 14:07] VITALS: BP 110/63
== END 2017-07-06 14:07 | disposition home or self-care (01) ==
LOC: ER 11:33
DX: M26.609 Unspecified temporomandibular joint disorder, unspecified side (principal); R51 Headache; R68.84 Jaw pain; M54.2 Cervicalgia; F17.200 Nicotine dependence, unspecified, uncomplicated
CPT/HCPCS: 99283; 96361; 96374; 96375; 70450; J1200; J1885; J0780; J7030